=== PATIENT | male | born 1980 | race Caucasian/White ===

== ENCOUNTER 2023-11-08 09:04 | Outpatient (AMB) | payer BC, SELFPAY ==
[2023-11-08 09:08] VITALS: BP 124/70; PULSE 106; RESP 13; TEMP 36.5; O2SAT 98; BMI 24.1
--- NOTE | 2023-11-08 09:08 | A.OFFPC_ITS ---
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 Accompanied by: Self / Same As Patient Allergies No Known Allergies Allergy (Verified 11/08/23 09:33) Medication List - Last Reconciled 11/08/23 by Mercy Morris CNP No Known Home Meds Tobacco use date assessed: 11/08/23 Dental Screening Dental Screen Date: 11/08/23 Did you have a dental visit in the last 12 months?: No Did you have a dental problem in the last 6 months where you did not have access to dental care?: No Was dental information given to patient?: Yes HPI HPI Comments History of Present Illness Details New patient Prior PCP:?[facility] Last office visit/CPE: About 2 years Acute issue(s): Inguinal hernia bilaterally -Presents for about 2 years. Reports int ermittent pain PMHx: None SurgHx: None FHx: Dad: Colon cancer SocHx: Nonsmoker. Drinks alcohol occasionally. No recreation drugs He requests a colonoscopy and vasectomy. 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 1. Little interest or pleasure in doing things: not at all 2. Feeling down, depressed, or hopeless: not at all 3. Trouble falling or staying asleep, or sleeping too much: not at all 4. Feeling tired or having little energy: several days 5. Poor appetite or overeating: not at all 6. Feeling bad about yourself - or that you are a failure or have let yourself or your family down: not at all 7. Trouble concentrating on things, such as reading the newspaper or watching television: not at all 8. Moving or speaking so slowly that other people could have noticed. Or the opposite - being so fidgety or restless that you have been moving around a lot more than usual: not at all 9. Thoughts that you would be better off or of hurting yourself in some way: not at all Total score: 1 Depression Screening Interpretation: Negative Depression Screening Done: Yes 77634 - PHQ-9 Billing: Yes Source: Developed by Drs. Marvel Drake, Lauren Hudson, Link Collins and colleagues, with an educational minerva from [employer]. Thrive Questionnaire Date Thrive assessed: 11/08/23 I am a: Patient What is your living situation today?: I have a steady place to live Within the past 12 months, did the food you bought not last and you didn't have the money to get more?: Never true Within the past 12 months, did you worry whether your food would run out before you got money to buy more?: Never true Do you have trouble paying for medicines?: No Do you have trouble getting transportation to medical appointments?: No Do you have trouble paying your heating and electricity bill?: No Do you have trouble taking care of your child, family member or friend?: No Do you have trouble with day-to-day activities such as bathing, preparing meals, shopping, managing finances, etc.?: No Are you currently unemployed and looking for a job?: No Are you interested in more education?: No Please select the resources that you would like help with: None Currently or been in a relationship where the following occur: no concerns reported THRIVE Score: 0 AUDIT C Alcohol Use Questionnaire (AUDIT-C) 1. How often do you have a drink containing alcohol?: 2-4 times a month 2. How many drinks containing alcohol do you have on a typical day when you are drinking?: 1 or 2 3. How often do you have six or more drinks on one occasion?: Never Total Score: 2 DOMENIC-7 AMB Questionnaire DOMENIC-7 Date DOMENIC - 7 assessed: 11/08/23 Feeling nervous, anxious, or on edge: 0 = Not at all Not being able to stop or control worryin = Not at all Worrying too much about different things: 0 = Not at all Trouble relaxin = Not at all Being so restless that it is hard to sit still: 0 = Not at all Becoming easily annoyed or irritable: 0 = Not at all Feeling afraid as if something awful might happen: 0 = Not at all Total DOMENIC-7 score (0-4 normal; 5-9 mild; 10-14 moderate; 15-21 severe): 0 Source: Developed by Drs. Marvel Drake, Lauren Hudson, Link Collins and colleagues, with an educational minerva from [employer]. DOMENIC-7 Assessment Billing DOMENIC-7 Assessment Tool: DOMENIC-7 Assessment 75902 Review of Systems Const Details: Denies chills, Denies fatigue, Denies fever(s), Denies headache(s) and Denies weakness HEENT Denies change in vision, Denies dizziness, Denies headache(s), Denies hearing loss, Denies nasal congestion, Denies sinus pain, Denies sinus pressure and Denies sore throat Card Denies chest pain, Denies lightheadedness, Denies dyspnea and Denies other (palpitations) Resp Denies cough, Denies dyspnea and Denies wheezing GI Denies abdominal pain, Denies melena, Denies hematochezia, Denies change in bowel habits, Denies dyspepsia and Denies nausea Denies hematuria and Denies dysuria Musc Denies abnormal gait, Denies myalgias, Denies arthralgias, Denies numbness and Denies tingling Skin/Breast Denies rash, Denies unusual bruising and Denies wounds Neuro Denies abnormal gait, Denies dizziness, Denies headache(s), Denies memory loss, Denies numbness, Denies Sensory deficit (Neuro), Denies tingling and Denies weakness Psych Denies anxiety, Denies depression and Denies memory loss Endo Denies cold intolerance, Denies fatigue, Denies heat intolerance, Denies polydipsia and Denies polyuria Jose/Lymph Denies easy bleeding and Denies easy bruising Aller/Immun Denies wheezing Physical exam (Primary Care) Vital Signs: Last Vital Signs Temp 97.7 F 11/08/23 09:08 Pulse 106 H 11/08/23 09:08 Resp 13 11/08/23 09:08 BP 124/70 11/08/23 09:08 Pulse Ox 98 11/08/23 09:08 Oxygen Delivery Method Room Air 11/08/23 09:08 BMI result Body Mass Index 24.1 Tobacco/Smoking Status: Tobacco use Status Tobacco use date assessed 11/08/23 11/08/23 09:19 Patient Tobacco Use Status Never used Tobacco 11/08/23 09:19 e-Cigarette/Vaping Use Never Used 11/08/23 09:19 PHQ-9: PHQ-9 Score PHQ-9: Total score 1 11/08/23 09:19 Depression Screening Interpretation: Negative Thrive Assessment: Date of Thrive Assessment Date Thrive assessed 11/08/23 11/08/23 09:19 Currently or been in a relationship where the following occur: no concerns reported Const Other: General: no acute distress, well developed, alert and awake Nutritional Appearance: well nourished Orientation/consciousness: patient oriented x3 HENMT Head: Yes normocephalic and Yes atraumatic Ears: hearing grossly normal bilaterally and TM's normal bilaterally General nose exam: Normal external nose present and Normal nares present Mouth: Normal oral and palatal mucosa present and moist mucous membranes Teeth and gingiva: dentition normal Throat: Yes oropharynx normal Eyes Pupils: Equal, round and reactive pupils present and Pupil accommodation reflex normal EOM: EOMs intact bilaterally Neck Neck: Yes normal visual inspection, Yes no lymphadenopathy and Yes trachea midline Thyroid: Thyroid normal Carotids: no bruits Lymphatic: no lymphadenopathy noted Chest Chest palpation & inspection: normal inspection of the chest Resp Effort & Inspection: normal respiratory effort Auscultation: clear to auscultation bilaterally Cardio Rate: regular rate Rhythm: regular rhythm Heart sounds: S1 normal heart sound present, S2 normal heart sound present, no gallops, no murmurs and no rubs Bruits: no abdominal aortic bruits and no carotid bruits GI Palpation (GI): No Abdominal aortic bruit present, Soft to palpation, nontender, No hepatosplenomegaly present and No Rebound tenderness present Auscultation: normal bowel sounds General: Yes no CVA tenderness Large, painless bulge palpated to the right groin and suprapubic region Back/Spine/Pelvis Back: no CVA tenderness Cervical Spine: cervical ROM normal and No Cervical spine tenderness Thoracic/Lumbar Spine: thoraco-lumbar ROM normal, No pain with thoraco-lumbar ROM, No thoracic spinal tenderness and No lumbar spinal tenderness Skin General: warm and dry. Normal skin color. Normal skin turgor Lesions: no lesions Rashes: no rashes Trauma: no lacerations or abrasions Wounds: no wounds Nails: normal Neuro General: patient oriented x3, gait normal and CN's II-XI intact bilaterally Cranial nerves: Yes Equal, round and reactive pupils present Cognition (Neuro): normal cognition Gait exam (Neuro): Normal gait present Motor exam (neuro): 5/5 motor strength present throughout Sensory Exam: No Sensory deficit (Neuro) Deep tendon reflexes (DTR's): Right patellar reflex intensity grade: 2+ and Left patellar reflex intensity grade: 2+ Extrem General: Yes normal to inspection, No edema and No calf tenderness Psych Appearance: grossly normal Affect: normal affect Attitude: cooperative Thought process: Normal thought process present Assessment and Plan Assessment & Plan (1) Normal physical examination, routine: Code(s): Z00.00 - Encounter for general adult medical examination without abnormal findings Plan: No significant physical restrictions or limitations noted Annual dental checkup recommended Follow-up in 2-3 weeks for telehealth visit for labs review Return sooner with symptoms or concerns Verbalized understanding and agreed with treatment plan (2) Right inguinal hernia: Code(s): K40.90 - Unilateral inguinal hernia, without obstruction or gangrene, not specified as recurrent Plan: Reports bilateral inguinal hernia with intermittent pain for the past 2 years Large, painless bulge palpated to the right groin and suprapubic region May take Tylenol ibuprofen for pain or discomfort Warm/cool compresses encouraged Ultrasound of both groin ordered. May referred to general surgery based on ultrasound results Follow-up with worsening or new signs and symptoms Verbalized understanding and agreed with treatment plan (3) Vasectomy evaluation: Code(s): Z30.09 - Encounter for other general counseling and advice on contraception Plan: Request vasectomy Referred to Urology (4) Colon cancer screening: Code(s): Z12.11 - Encounter for screening for malignant neoplasm of colon Plan: He has never had a colonoscopy His father has history of colon cancer Referred to gastroenterology for colonoscopy (5) Vaccine counseling: Code(s): Z71.85 - Encounter for immunization safety counseling Plan: He has never had the flu vaccine and does not want the vaccine at this time Instructed on importance of vaccination and encouraged to get vaccinated for the flu (6) Laboratory tests ordered as part of a complete physical exam (CPE): Code(s): Z00.00 - Encounter for general adult medical examination without abnormal findings Plan: Fasting labs ordered in preparation of a complete physical exam. Advised to fast for at least 10 hours before getting labs drawn. May drink water Verbalized understanding and agreed with treatment plan. Orders: Orders Complete Blood Count Auto Diff Today Z00.00 - Encounter for general adult medical examination without abnormal findings Lipid Panel Today Z00.00 - Encounter for general adult medical examination without abnormal findings PSA, Ultra Sensitive Today Z00.00 - Encounter for general adult medical examination without abnormal findings Comprehensive [place]. Panel Fast Today Z00.00 - Encounter for general adult m edical examination without abnormal findings TSH reflex Free T4 Today Z00.00 - Encounter for general adult medical examination without abnormal findings UA CC w/rflx Micro + Cult Today Z00.00 - Encounter for general adult medical examination without abnormal findings US soft tiss head and/or neck Today K40.90 - Unilateral inguinal hernia, without obstruction or gangrene, not specified as recurrent Referrals Urology Referral Z30.09 - Encounter for other general counseling and advice on contraception Gastroenterology Referral Z12.11 - Encounter for screening for malignant neoplasm of colon Coding Level of Care Code New Pt Prev Care 40-64y(46018) Diagnoses Normal physical examination, routine Z00.00 Right inguinal hernia K40.90 Vasectomy evaluation Z30.09 Colon cancer screening Z12.11 Vaccine counseling Z71.85 Laboratory tests ordered as part of a complete physical exam (CPE) Z00.00 Additional Codes DOMENIC-7 Assessment Billing - DOMENIC-7 Assessment Tool: DOMENIC-7 Assessment 78777 ([id number])
== END 2023-11-08 09:52 | disposition home or self-care (01) ==
PROVIDERS: PCP Nurse Practitioner Family; Visit Provider Nurse Practitioner Family
DX: Z00.00 Encounter for general adult medical examination without abnormal findings (principal); K40.90 Unilateral inguinal hernia, without obstruction or gangrene, not specified as recurrent; Z12.11 Encounter for screening for malignant neoplasm of colon; Z71.85 Encounter for immunization safety counseling
CPT/HCPCS: 99386

== ENCOUNTER 2023-11-30 11:07 | Outpatient (REF) | payer BC, SELFPAY ==
--- NOTE | ~2023-11-30 | US_ITS ---
EXAMINATION: Ultrasound pelvis Limited CLINICAL INFORMATION: Large painless bulge palpated in the right groin and suprapubic region. COMPARISON: None available. TECHNIQUE: Grayscale and color Doppler imaging was obtained in the right and left inguinal regions. FINDINGS: -Corresponding with palpable abnormality in the right inguinal region is a suspected hernia with a fascial defect measuring approximately 2.1 cm. There is suspected herniation of fat. There is unclear herniation of bowel. Hernia is more prominent with Valsalva maneuvering. -Corresponding with palpable abnormality left inguinal region is a suspected hernia with a fascial defect measuring approximately 2.7 cm. There is suspected herniation of fat. There is unclear or herniation of bowel. Hernia is more prominent with Valsalva maneuvering. US/US pelvic limited IMPRESSION: Bilateral inguinal hernias. There is definitively herniation of fat, however, there is unclear herniation of bowel within either hernia. Recommend CT imaging of the pelvis for further evaluation.
== END 2023-11-30 11:08 | disposition home or self-care (01) ==
LOC: HO.US 11:07
PROVIDERS: PCP Nurse Practitioner Family; Visit Provider Nurse Practitioner Family
DX: K40.90 Unilateral inguinal hernia, without obstruction or gangrene, not specified as recurrent (principal)
CPT/HCPCS: 76857

== ENCOUNTER 2024-04-04 08:08 | Outpatient (AMB) | payer BC, SELFPAY ==
--- NOTE | 2024-04-04 08:19 | MHC.OFFVIS ---
Vital Signs 04/04/24 08:21 Height 5 ft 10 in Weight 173 lb 4.533 oz BMI 24.9 BP 128/80 Blood Pressure Location Rt brachial Position Sitting Pulse 126 H Pulse Source Pulse Oximeter Pulse Oximetry (%) 98 Oxygen Delivery Method Room Air Intake Visit Reasons: Colonoscopy Screening Intake Note: Anderson presents in office today for a scheduled colo s/p consult CC; Pt reports no previous hx of colo s/p. Family hx (father) of colo cancer noted. Pt denies any sx or additional concerns at this point and confirms the routine nature of this s/p. Curriculum Advisory Teacher Required: No Allergies No Known Allergies Allergy (Verified 04/04/24 08:21) HPI HPI Colonoscopy Screening: Details: 43 year old? male here today for pre colonoscopy screening.? Patient was sent to us by his PCP.? This is his first colonoscopy screening.? Patient denies any gastrointestinal symptoms in the past or at present.? Patient's father was diagnosed with colorectal cancer in early 60s. Recommendation was made for patient to go for early colorectal screening. Patient denies any melena, hematochezia, unintentional weight loss or ribbon like stools..? Denies history of difficulty with sedation or anesthesia in the past.? Negative for history of sleep apnea.? Denies any history of cardiac, renal, pulmonary, or hepatic disease.?? No history of infectious? diseases like hepatitis A, B, C, HIV or tuberculosis.? 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 [employer] Cognitive needs: No Hearing needs: No Vision needs: No Review of Systems Const Denies weight gain and Denies weight loss ENT Reports no additional complaints, Denies dysphagia and Denies odynophagia Card Reports no additional complaints Resp Reports no additional complaints GI Denies abdominal pain, Denies belching, Denies melena, Denies bloating, Denies change in bowel habits, Denies dysphagia, Denies excessive flatus, Denies dyspepsia, Denies heartburn, Denies diarrhea, Denies loose stools, Denies nausea, Denies odynophagia and Denies vomiting Reports no additional complaints Musc Reports no additional complaints Neuro Reports no additional complaints Psych Reports no additional complaints Endo Reports no additional complaints Physical Exam Vital Signs: Last Vital Signs Pulse 126 H 04/04/24 08:21 BP 128/80 04/04/24 08:21 Pulse Ox 98 04/04/24 08:21 Oxygen Delivery Method Room Air 04/04/24 08:21 BMI result Body Mass Index 24.9 Const General: healthy appearing, no acute distress and well developed Nutritional Appearance: well nourished Orientation/consciousness: patient oriented x3 Resp Effort & Inspection: normal respiratory effort, able to speak in complete sentences, no tracheal deviation and symmetric chest movement Auscultation: clear to auscultation bilaterally Cardio Rate: regular rate GI Inspection: Yes normal to inspection and No distended Palpation (GI): Soft to palpation, not firm, nontender and No hepatosplenomegaly present Auscultation: normal bowel sounds General: Yes no CVA tenderness Back/Spine/Pelvis Back: no CVA tenderness Skin General skin exam: elasticity normal, turgor normal and dry skin Neuro General: patient oriented x3 Psych Appearance: grossly normal Mental Status: mental status grossly normal Assessment & Plan Assessment & Plan (1) Colon cancer screening: Code(s): Z12.11 - Encounter for screening for malignant neoplasm of colon Category: Medical Plan Patient denies any GI, cardiac or respiratory symptoms.? Denies any issues with anesthesia in the past.? Denies any history of sleep apnea.? No history infectious diseases in the past or present.? Not on any anticoagulation therapy.? Family history of CRC? Patient denies melena, hematochezia, unintentional weight loss or ribbon like stools.? Discussed at length the pre-procedure,? prep, diet & medications as well as what to expect prior, during and after the procedure.?? Stressed the importance of good bowel prep.? Recommended the use of Vaseline or Calmoseptine OTC & baby wipes with bowel movements to promote comfort.? ?Patient verbalizes understanding and agrees to plan of care.? He was given the opportunity to ask questions and all questions answered.? We will see him after the procedure.? Medications: New bisacodyl (Dulcolax (bisacodyl)) take 4 tabs at noon the day before your colonoscopy 20 mg (4 x 5 mg) PO ONCE 1 day 4 tabs 0RF Z12.11 - Encounter for screening for malignant neoplasm of colon polyethylene glycol 3350 (Miralax) As directed by gastroenterology department at [facility] 238 grams PO ONCE 238 grams 0RF Z12.11 - Encounter for screening for malignant neoplasm of colon Coding Level of Care Code New Pt Level 3 (91808) Diagnoses Colon cancer screening Z12.11 Time Spent (min) 40 Comment 30 minutes spent with patient and additional 10 minutes spent reviewing his records
[2024-04-04 08:21] VITALS: BP 128/80; PULSE 126; O2SAT 98; BMI 24.9
== END 2024-04-04 09:01 | disposition home or self-care (01) ==
PROVIDERS: PCP Nurse Practitioner Family; Visit Provider Nurse Practitioner Family
DX: Z01.818 Encounter for other preprocedural examination (principal); Z12.11 Encounter for screening for malignant neoplasm of colon; Z80.0 Family history of malignant neoplasm of digestive organs
CPT/HCPCS: S0285

== ENCOUNTER → 2024-04-04 08:08 | Outpatient (BNVA) | payer BC, SELFPAY | PROVIDERS: PCP Nurse Practitioner Family; Visit Provider Nurse Practitioner Family ==

== ENCOUNTER 2024-04-10 15:25 | Outpatient (AMB) | payer BC, SELFPAY ==
--- NOTE | 2024-04-10 15:29 | MHC.OFFVIS ---
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 Morris. He presents to the office today for - vasectomy evaluation Vasectomy evaluation The patient presents for vasectomy consultation.? He is currently . He has fathered 4 children with 2 partners. The youngest child is 4 years old. His partner is aware and permissive for a vasectomy. Current form of control is hormones. 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 Patient education has been provided via AUA video, via printed information, risks of failure, recovery time, bruising and potential pain syndrome have been stressed Discussion today focused on the presence of vasectomy and the risks, benefits and alternatives that are available. Vasectomy as intended as a permanent form of control. Printed information and literature was provided to the patient. Overall there is a one in 2500 failure rate. This can occur at any time after vasectomy. Risks were discussed highlighting hematoma, spermatocele, epididymal congestion, development of sperm antibodies, and development of chronic pain estimated between 1-5%. The procedure was reviewed in detail. Anatomical diagrams of the male genitalia were used to explain the location of the vas deferens. The vas deferens will be transected, the proximal end will be cauterized, a metal clip would be applied to separate the 2 vas deferens ends. It was explained the procedure will be done in the office and takes approximately 10-15 minutes. Less common problems that arise with vasectomy include hematoma, bleeding, allergic reaction to anesthetic, epididymal infection, epididymal congestion, scrotal discomfort, spermatic leak, spermatic granuloma and the possibility of antisperm antibodies. He understands these risks and wishes to proceed. Consent was signed at the office today. He also understands that it takes 12 weeks for sperm to fully clear the system. He will need to provide a semen sample at 12 weeks and if this is not clear a 2nd sample at 16 weeks. Medical clearance to stop using protection will only be provided if he satisfies published criteria for sperm clearance. 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 [employer] Cognitive needs: No Hearing needs: No Vision needs: No Review of Systems Const All systems reviewed & are unremarkable except as noted in HPI and below Physical Exam Const General: cooperative, healthy appearing, comfortable, no acute distress, well developed, alert and awake Nutritional Appearance: average body habitus Orientation/consciousness: patient oriented x3 Limitations: no limitations HEENT Head: Yes normal to inspection, Yes normocephalic and Yes atraumatic Ears: hearing grossly normal bilaterally Eyes General: appearance normal, both eyes and all related structures Neck Neck: Yes normal visual inspection and Yes trachea midline Chest Chest palpation & inspection: normal inspection of the chest Resp Effort & Inspection: normal respiratory effort and able to speak in complete sentences Cardio Rate: regular rate GI Inspection: Yes normal to inspection General: Yes no CVA tenderness Back/Spine/Pelvis Back: no CVA tenderness Skin General skin exam: no rashes or lesions noted Neuro General: patient oriented x3 Extrem General: Yes normal to inspection Psych Appearance: grossly normal and well kempt Mental Status: mental status grossly normal Speech and movement: Normal speech and movement present and Clear speech present Affect: normal affect Attitude: cooperative Thought process: Normal thought process present Thought content: Normal thought content present Insight: Fair insight present (Psych) Judgement: Fair judgement present (Psych) Assessment & Plan Assessment & Plan (1) Vasectomy evaluation: Code(s): Z30.09 - Encounter for other general counseling and advice on contraception Category: Medical (2) Anxiety about health: Code(s): R45.89 - Other symptoms and signs involving emotional state Category: Medical Plan Discussed at length vasectomy; risks and benefits; as noted above All questions were answered. Discussed semen analysis in office visit verses fellows; information provided. Prescriptions provided; discussed specific instructions of bringing them to office prior to procedure. Will schedule for in office vasectomy as discussed. Follow-up per doctor's orders; or sooner with any issues, concerns, and or questions. Medications: New diazepam Take medication after arrival at office 2 mg PO BID 1 day PRN 2 tabs 0RF anxiety R45.89 - Other symptoms and signs involving emotional state tramadol Bring to office day of procedure; take medication after arrival at office 50 mg PO Q8H 3 days PRN 9 tabs 0RF pain Patient Instructions: The patient had an opportunity to ask questions regarding the treatment plan. All questions were answered. Physical exam, labs, and imaging were discussed and reviewed in detail. As well as risks, benefits, and discussion of treatment choices. No major barriers to understanding were identified. The patient expressed understanding and agreement with the above treatment plan. The patient was made aware they should contact our office by phone for worsening of their current condition, the appearance of new symptoms, or with any questions or concerns. Compliance is encouraged with any medications and follow up testing that is ordered. It is a privilege to be allowed the opportunity to participate in? your urological care.? Again, if you have any questions or concerns If you have any questions or concerns please do not hesitate to contact me. The office is [phone]. This note is constructed using voice recognition software. While every effort has been made to ensure accuracy plant operator control room operator errors may have been included. Yours sincerely, CHELE Khan Coding Level of Care Code New Pt Level 4 (13988) Diagnoses Vasectomy evaluation Z30.09 Anxiety about health R45.89
== END 2024-04-10 15:56 | disposition home or self-care (01) ==
PROVIDERS: PCP Nurse Practitioner Family; Visit Provider Nurse Practitioner Family
DX: Z30.09 Encounter for other general counseling and advice on contraception (principal); R45.89 Other symptoms and signs involving emotional state
CPT/HCPCS: 99204

== ENCOUNTER → 2024-04-10 15:25 | Outpatient (BNVA) | payer BC, SELFPAY | PROVIDERS: PCP Nurse Practitioner Family; Visit Provider Nurse Practitioner Family ==

== ENCOUNTER 2024-08-15 09:34 | Day surgery (SDC) | payer BC, SELFPAY ==
--- NOTE | 2024-08-14 13:29 | HO.ANESPROP2 ---
Documented by User: Stacey Becerra NP 08/14/24 13:29 HPI - Anesthesia Eval Consult details Narrative: 43yo M for Colonoscopy PMFSH Active Problems Active Problems: All Active Problems Anxiety about health (Acute) Vaccine counseling (Acute) Colon cancer screening (Acute) Vasectomy evaluation (Acute) Right inguinal hernia (Acute) Normal physical examination, routine (Acute) Laboratory tests ordered as part of a complete physical exam (CPE) (Acute) Past Medical History Medical History No pertinent past medical history Family History Family History Father Colon cancer Surgical History Surgical History No pertinent past surgical history Social History Social History Housing: House Are you a primary medical care manager to a significant other at home: No Do you presently have visiting nurse or other home services: No Patient Tobacco Use Status: Never used Tobacco e-Cigarette/Vaping Use: Never Used Use of substances other than those prescribed or required for medical reasons: No Have you been hit, kicked, punched, or otherwise hurt by someone within the past year? 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 [employer] Cognitive needs: No Hearing needs: No Vision needs: No Meds Allergies Allergy/AdvReac Type Severity Reaction Status Date / Time No Known Allergies Allergy Verified 04/10/24 21:18 Assessment and Plan Assessment Anesthesia Assessment: Chart Reviewed Documented by User: Celi Ordoñez MD 08/15/24 10:31 PMFSH Past Medical History Medical History No pertinent past medical history Family History Family History Father Colon cancer Family history of problems with anesthesia: No Surgical History Surgical History No pertinent past surgical history History of Problems with Anesthesia: No Social History Social History Housing: House Are you a primary medical care manager to a significant other at home: No Do you presently have visiting nurse or other home services: No Patient Tobacco Use Status: Never used Tobacco e-Cigarette/Vaping Use: Never Used Use of substances other than those prescribed or required for medical reasons: No Have you been hit, kicked, punched, or otherwise hurt by someone within the past year? 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 [employer] Cognitive needs: No Hearing needs: No Vision needs: No Meds Allergies Allergy/AdvReac Type Severity Reaction Status Date / Time No Known Allergies Allergy Verified 04/10/24 21:18 Exam Airway Mallampati Class: II TM Dist: >3cm Neck ROM: Full Heart: rrr Lungs: cta Assessment and Plan Assessment Anesthesia Assessment: Anesthesia Plan Discussed Final Anesthetic Review Family History of Problems with Anesthesia: No History of Problems with Anesthesia: No NPO: Yes ASA Class: II Final Preanesthetic Review: No Changes in Pt Med Stat, Meds/Allgs Chart Reviewed, Consent Obtained/Reviewed and Anes Risks/Benef Reviewed Patient Risk: Low Procedure Risk: Low Anesthetic Plan Anesthetic Plan: MAC: Disposition: Standard PACU
--- NOTE | 2024-08-15 10:09 | MHC.SHP ---
Pre-Procedural Eval Section A - 24 Hr Update-Section A only Date of Service: 08/15/24 Section B - Complete if H&P > 30 days Chief Complaint: Family history of malignant neoplasm of digestive Relevant Family History (Specify if Yes): Yes Relevant Social History: None Present Medications: see Short Stay Collaborative assessment Medical History: No relevant PMH History of Previous Operations: No relevant previous surgery Allergies: Allergies Allergy/AdvReac Type Severity Reaction Status Date / Time No Known Allergies Allergy Verified 04/10/24 21:18 Review of Systems Sugical H&P ROS: Negative: Constitution, Cardiovascular, Respiratory, Neurological, Psychiatric, Hem-Onc, Allergic/Immunologic, Gastrointestinal, Genitourinary, Musculoskeletal, Integumentary, Endocrine and Eyes/Ears/Nose/Throat Exam Surgical H&P Exam: Normal: HEENT, Normal: Heart, Normal: Lungs, Normal: Extremities, Normal: Abdomen, Normal: Skin and Normal: Neurological Plan Diagnosis/Plan: Unchanged I have reviewed the history and physical and performed a pertinent physical examination on my patient. No changes have occurred unless specified. Time Spent With Patient Time: Total time managing care of this patient today ____ minutes.
[2024-08-15 10:23] VITALS: BMI 24.5
[2024-08-15 10:38] VITALS: BP 143/90; PULSE 110; RESP 18; TEMP 36.4; O2SAT 97
[2024-08-15] MEDS: Lactated Ringers 1,000 ML 100 ML IVCONT (10:43)
--- NOTE | 2024-08-15 11:20 | P.OPN-COLO_ITS ---
Colonoscopy Operative Note Operative Note Date of Service: 08/15/24 Narrative: Operative Information Procedure Description: Colonoscopy Indication: screening, pos FH of CRC Anesthesia: MAC COLONOSCOPY Instrument: Olympus variable stiffness pediatric scope 190L Colonoscopy Monitoring: Vital signs and clinical assessment, continuous EKG monitoring, Pulse oximetry, Carbon Dioxide monitoring and blood pressure monitoring were done throughout the procedure. Colon withdrawal time was 14 minutes. Procedure: The patient was placed in the left lateral decubitis position and pre-procedure medications were administered. After a digital rectal examination of the ano-rectum, the video colonoscope was inserted into the rectum and advanced through the colon to the cecum/TI. The colonoscope was slowly withdrawn in a retrograde panoramic fashion and the colon mucosa was carefully examined including a retroflexed view of the rectum. Findings and interventions are described below. Procedure Difficulty: easy Findings: Terminal Ileum-normal Cecum:normal Ascending Colon: flat polyp 11-12 mm lifted with eleview and removed with hot snare with 2 clips applied to defect, x 1 3-4 sessile polyp removed with cold forceps Transverse Colon -normal Descending Colon:normal Sigmoid Colon: normal Rectum: Retroflexion with small internal hemorrhoids seen, grade I, 4-5 mm sessile polyp removed with cold forceps Anorectum - normal Intervention: cold forceps, hot snare and eleview for EMR, clips Colon preparation: [place] Bowel Preparation Scale Right colon; 1-2 Transverse colon: 2 Left colon; 1-2 (0 = Unprepared colon segment with mucosa not seen due to solid stool that cannot be cleared. 1 = Portion of mucosa of the colon segment seen, but other areas of the colon segment not well seen due to staining, residual stool and/or opaque liquid. 2 = Minor amount of residual staining, small fragments of stool and/or opaque liquid, but mucosa of colon segment seen well. 3 = Entire mucosa of colon segment seen well with no residual staining, small fragments of stool or opaque liquid) Impression and Post Procedure Diagnosis: colon polyps internal hemorrhoids Plan: High fiber diet leaflet Avoid straining at stool, epsom salts and sitz bath, anusol supps or cream Repeat Colonoscopy in 1 year due to polyps and prep or earlier if clinically indicated Above findings were reviewed with the patient and relevant handouts were provided if indicated.
[2024-08-15 11:26] VITALS: BP 107/76; PULSE 102; RESP 16; TEMP 36.4; O2SAT 98
[2024-08-15 11:41] VITALS: BP 112/82; PULSE 103; RESP 16; O2SAT 96
[2024-08-15 11:56] VITALS: BP 102/62; PULSE 88; RESP 16; TEMP 37; O2SAT 96
== END 2024-08-15 12:30 | disposition home or self-care (01) ==
PROVIDERS: Visit Provider Internal Medicine Gastroenterology
PROC: 0DJD8ZZ Inspection of Lower Intestinal Tract, Via Natural or Artificial Opening Endoscopic (ICD-10-PCS; CPT 45378; principal; 2024-08-15 11:10)
DX: Z12.11 Encounter for screening for malignant neoplasm of colon (principal); D12.2 Benign neoplasm of ascending colon; K62.1 Rectal polyp; K64.0 First degree hemorrhoids; Z80.0 Family history of malignant neoplasm of digestive organs
CPT/HCPCS: 45385; 45381; 45380; 88305; J2003; J2250; J2704

== ENCOUNTER → 2024-08-15 09:34 | Outpatient (BNV) | payer BC, SELFPAY | PROVIDERS: Visit Provider Internal Medicine Gastroenterology | DX: Z12.11 Encounter for screening for malignant neoplasm of colon (principal); Z80.0 Family history of malignant neoplasm of digestive organs; K63.5 Polyp of colon; K62.1 Rectal polyp; K64.0 First degree hemorrhoids | CPT/HCPCS: 45380; 45381; 45385 ==

== ENCOUNTER 2025-06-03 12:17 | Outpatient (AMB) | payer BC, SELFPAY ==
--- NOTE | 2025-06-03 12:21 | MHC.PC.OV ---
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 He has history of bilateral inguinal hernia. No acute symptoms at this time. He had pelvic ultrasound done in 2023 but did not follow up. He had pelvic ultrasound in 12/02/2023 with the following findings: IMPRESSION: Bilateral inguinal hernias. There is definitively herniation of fat, however, there is unclear herniation of bowel within either hernia. Recommend CT imaging of the pelvis for further evaluation. He was last seen in the office in October 2023. He was advised to perform comprehensive lab work and follow-up for telehealth visit for labs review. He never completed lab work. He admits to consuming significant amount of caffeine daily. His diet is poor with significant amount of processed foods and sodium. 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 1. Little interest or pleasure in doing things: not at all 2. Feeling down, depressed, or hopeless: not at all 3. Trouble falling or staying asleep, or sleeping too much: not at all 4. Feeling tired or having little energy: not at all 5. Poor appetite or overeating: not at all 6. Feeling bad about yourself - or that you are a failure or have let yourself or your family down: not at all 7. Trouble concentrating on things, such as reading the newspaper or watching television: not at all 8. Moving or speaking so slowly that other people could have noticed. Or the opposite - being so fidgety or restless that you have been moving around a lot more than usual: not at all 9. Thoughts that you would be better off or of hurting yourself in some way: not at all Total score: 0 Depression Screening Interpretation: Negative Depression Screening Done: Yes Source: Developed by Drs. Marvel Drake, Lauren Hudson, Link Collins and colleagues, with an educational minerva from [employer]. Thrive Questionnaire Date Thrive assessed: 11/08/23 I am a: Patient What is your living situation today?: I have a steady place to live Within the past 12 months, did the food you bought not last and you didn't have the money to get more?: Never true Within the past 12 months, did you worry whether your food would run out before you got money to buy more?: Never true Do you have trouble paying for medicines?: No Do you have trouble getting transportation to medical appointments?: No Do you have trouble paying your heating and electricity bill?: No Do you have trouble taking care of your child, family member or friend?: No Do you have trouble with day-to-day activities such as bathing, preparing meals, shopping, managing finances, etc.?: No Are you currently unemployed and looking for a job?: No Are you interested in more education?: No Please select the resources that you would like help with: None Currently or been in a relationship where the following occur: No concerns reported THRIVE Score: 0 AUDIT C Alcohol Use Questionnaire (AUDIT-C) 1. How often do you have a drink containing alcohol?: Monthly or less 2. How many drinks containing alcohol do you have on a typical day when you are drinking?: 3 or 4 3. How often do you have six or more drinks on one occasion?: Never Total Score: 2 DOMENIC-7 AMB Questionnaire DOMENIC-7 Date DOMENIC - 7 assessed: 11/08/23 Feeling nervous, anxious, or on edge: 0 = Not at all Not being able to stop or control worryin = Not at all Worrying too much about different things: 0 = Not at all Trouble relaxin = Not at all Being so restless that it is hard to sit still: 0 = Not at all Becoming easily annoyed or irritable: 0 = Not at all Feeling afraid as if something awful might happen: 0 = Not at all Total DOMENIC-7 score (0-4 normal; 5-9 mild; 10-14 moderate; 15-21 severe): 0 Source: Developed by Drs. Marvel Drake, Lauren Hudson, Link Collins and colleagues, with an educational minerva from [employer]. Review of Systems Const Details: Const Denies chills, Denies fatigue, Denies fever(s), Denies headache(s) and Denies weakness ENT Denies dizziness and Denies headache(s) Card Denies chest pain, Denies lightheadedness, Denies dyspnea and Denies other (Palpitations) Resp Denies cough, Denies dyspnea, Denies wheezing and Denies other ( shortness of breath) GI Denies abdominal pain, Denies melena, Denies hematochezia, Denies change in bowel habits, Denies dyspepsia and Denies nausea Reports as per HPI Musc Denies abnormal gait, Denies myalgias, Denies arthralgias, Denies numbness and Denies tingling Skin/Breast Denies rash, Denies unusual bruising and Denies wounds Neuro Denies abnormal gait, Denies dizziness, Denies headache(s), Denies memory loss, Denies numbness, Denies Sensory deficit (Neuro), Denies tingling and Denies weakness Psych Denies anxiety, Denies depression, Denies memory loss Endo Denies cold intolerance, Denies fatigue, Denies heat intolerance, Denies polydipsia and Denies polyuria Aller/Immun Denies wheezing Physical exam (Primary Care) Vital Signs: Last Vital Signs Temp 97.9 F 06/03/25 12:26 Pulse 96 06/03/25 12:26 Resp 16 06/03/25 12:26 BP 146/92 H 06/03/25 12:26 Pulse Ox 98 06/03/25 12:26 Oxygen Delivery Method Room Air 06/03/25 12:26 BMI result Body Mass Index 25.4 Tobacco/Smoking Status: Tobacco use Status Tobacco use date assessed 06/03/25 06/03/25 12:29 Patient Tobacco Use Status Never used Tobacco 06/03/25 12:29 e-Cigarette/Vaping Use Never Used 06/03/25 12:29 PHQ-9: PHQ-9 Score PHQ-9: Total score 0 06/03/25 12:29 Depression Screening Interpretation: Negative Thrive Assessment: Date of Thrive Assessment Date Thrive assessed 11/08/23 06/03/25 12:29 Currently or been in a relationship where the following occur: No concerns reported Const Other: General: no acute distress and well developed Nutritional Appearance: well nourished Orientation/consciousness: patient oriented x3 HENMT Head: Yes normocephalic and Yes atraumatic Eyes General: appearance normal, both eyes and all related structures Pupils: Equal, round and reactive pupils present EOM: EOMs intact bilaterally Resp Effort & Inspection: normal respiratory effort Auscultation: clear to auscultation bilaterally Cardio Rate: regular rate Rhythm: regular rhythm Heart sounds: S1 normal heart sound present, S2 normal heart sound present, no gallops, no murmurs and no rubs GI Palpation (GI): No Abdominal aortic bruit present, Soft to palpation, nontender, No hepatosplenomegaly present and No Rebound tenderness present Auscultation: normal bowel sounds Large painless bulge to the right groin. No bulge to the left groin. Skin is intact Back/Spine/Pelvis Back: no CVA tenderness Cervical Spine: cervical ROM normal and No Cervical spine tenderness Thoracic/Lumbar Spine: thoraco-lumbar ROM normal, No pain with thoraco-lumbar ROM, No thoracic spinal tenderness and No lumbar spinal tenderness Extrem General: Yes normal to inspection, No edema and No calf tenderness Skin General: warm and dry. Normal skin color. Normal skin turgor Lesions: no lesions Rashes: no rashes Trauma: no lacerations or abrasions Wounds: no wounds Nails: normal Neuro General: patient oriented x3, gait normal and no focal neuro deficit Cranial nerves: Yes Equal, round and reactive pupils present Cognition (Neuro): normal cognition Gait exam (Neuro): Normal gait present Sensory Exam: No Sensory deficit (Neuro) Psych Appearance: grossly normal Affect: normal affect Attitude: cooperative Thought process: Normal thought process present Coding Level of Care Code Est Pt Level 4 (87958) Diagnoses Bilateral inguinal hernia K40.20 Elevated blood pressure reading without diagnosis of hypertension R03.0 Laboratory tests ordered as part of a complete physical exam (CPE) Z00.00 Assessment & Plan Assessment & Plan (1) Bilateral inguinal hernia: Code(s): K40.20 - Bilateral inguinal hernia, without obstruction or gangrene, not specified as recurrent Category: Medical Plan: 44-year-old male presents with complaints of chronic intermittent pain to his right groin. He has history of bilateral inguinal hernia. No acute symptoms at this time. He had pelvic ultrasound done in 2023 but did not follow up. Large painless bulge to the right groin. Davis to the left groin. Skin is intact. Pelvic ultrasound in 12/02/2023 with the following findings: IMPRESSION: Bilateral inguinal hernias. There is definitively herniation of fat, however, there is unclear herniation of bowel within either hernia. Recommend CT imaging of the pelvis for further evaluation. Pelvic CT ordered. May take Tylenol ibuprofen as needed. Warm/cool compresses encouraged. Referred to general surgery. Follow-up as needed. Verbalized understanding and agreed with the plan. (2) Elevated blood pressure reading without diagnosis of hypertension: Code(s): R03.0 - Elevated blood-pressure reading, without diagnosis of hypertension Category: Medical Plan: Resting blood pressure is 146/92, above goal of less than 140/90. He consumes significant amount of caffeine daily. His diet is poor with significant amount of processed foods and sodium. Encouraged to cut down or avoid caffeine intake. Healthy diet, including low-sodium encouraged. Routine exercise encouraged. Perform lab work before next visit. Follow-up in 1 month for an extended physical exam, hypertension, and labs reviewed. Return sooner with symptoms or concerns. Verbalized understanding and agreed with the plan. (3) Laboratory tests ordered as part of a complete physical exam (CPE): Code(s): Z00.00 - Encounter for general adult medical examination without abnormal findings Category: Medical Plan: Fasting labs ordered as part of a complete physical exam. Advised to fast for at least 10 hours before getting labs drawn. May drink water Verbalized understanding and agreed with treatment plan. Orders: Orders Complete Blood Count Auto Diff Today Z00.00 - Encounter for general adult medical examination without abnormal findings Lipid Panel Today Z00.00 - Encounter for general adult medical examination without abnormal findings PSA, Ultra Sensitive Today Z00.00 - Encounter for general adult medical examination without abnormal findings TSH reflex Free T4 Today Z00.00 - Encounter for general adult medical examination without abnormal findings Comprehensive [place]. Panel Fast Today Z00.00 - Encounter for general adult medical examination without abnormal findings Microalbumin, Random (w Creat) Today Z00.00 - Encounter for general adult medical examination without abnormal findings UA CC w/rflx Micro + Cult Today Z00.00 - Encounter for general adult medical examination without abnormal findings Vitamin D 25-OH Total Today Z00.00 - Encounter for general adult medical examination without abnormal findings CT pelvis wo IV con Today K40.20 - Bilateral inguinal hernia, without obstruction or gangrene, not specified as recurrent Referrals General Surgery Referral K40.20 - Bilateral inguinal hernia, without obstruction or gangrene, not specified as recurrent
[2025-06-03 12:26] VITALS: BP 146/92; PULSE 96; RESP 16; TEMP 36.6; O2SAT 98; BMI 25.4
== END 2025-06-03 12:50 | disposition home or self-care (01) ==
LOC: HO.HMCFM 12:18
PROVIDERS: PCP Nurse Practitioner Family; Visit Provider Nurse Practitioner Family
DX: K40.20 Bilateral inguinal hernia, without obstruction or gangrene, not specified as recurrent (principal); R03.0 Elevated blood-pressure reading, without diagnosis of hypertension; Z00.00 Encounter for general adult medical examination without abnormal findings

== ENCOUNTER 2025-07-08 09:01 | Outpatient (AMB) | payer BC, SELFPAY ==
--- NOTE | 2025-07-08 09:25 | A.OFFVIS_ITS ---
Vital Signs 07/08/25 09:30 Height 5 ft 10 in Weight 182 lb BMI 26.1 BP 141/85 H Blood Pressure Location Lt brachial Position Sitting Pulse 83 Intake Visit Reasons: bilateral inguinal hernias Intake Note: Patient is seen in office for evaluation of bilateral inguinal hernias. 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 He 1st noted the hernia approximately 2 years ago and since this time the hernias increased in size in his occasionally painful es pecially when standing. The right side has become more prominent than the left side although he denies significant pain on either side. He denies a previous history of hernia surgeries or other abdominal surgery. He denies any nausea, vomiting, fever or chills. An ultrasound of the pelvis performed on 11/30/2023 confirmed bilateral inguinal hernias. 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 He notes that when he is standing the hernia is most prominent but the hernia does reduce when laying in bed. 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 [employer] Cognitive needs: No Hearing needs: No Vision needs: No Review of Systems Const All systems reviewed & are unremarkable except as noted in HPI and below Physical Exam Const General: cooperative and no acute distress Nutritional Appearance: well nourished Orientation/consciousness: patient oriented x3 Limitations: no limitations HEENT Head: Yes normocephalic and Yes atraumatic Ears: hearing grossly normal bilaterally Resp Effort & Inspection: normal respiratory effort, no audible wheezes, no cough and no respiratory distress Cardio Jugular venous distension: no JVD GI Other: Easily identified bilateral inguinal hernias noted in the standing position right greater than left. Both hernias increase in size with Valsalva maneuvers but reduces easily with light pressure. Abdomen is otherwise soft and nondistended with normal bowel sounds. Inspection: Yes normal to inspection Skin Other: Warm, dry, no rash Neuro General: patient oriented x3 Extrem General: Yes no clubbing, cyanosis or edema Assessment & Plan Assessment & Plan (1) Bilateral inguinal hernia: Code(s): K40.20 - Bilateral inguinal hernia, without obstruction or gangrene, not specified as recurrent Category: Medical Qualifiers: Obstruction and gangrene presence: without obstruction or gangrene Recurrence: non-recurrent Qualified Code(s): K40.20 - Bilateral inguinal hernia, without obstruction or gangrene, not specified as recurrent Plan 44-year-old male patient presenting with bilateral inguinal hernias that are gradually increasing in size and causing mild discomfort. On examination he has bilateral reducible inguinal hernias. I recommended repair with mesh of the bilateral inguinal hernias and after discussion of the procedure, risks, and alternatives, he consents to repair of the bilateral inguinal hernias with mesh. He will be scheduled as a short-stay surgery at his earliest convenience. Coding Level of Care Code New Pt Level 4 (14763) Diagnoses Non-recurrent bilateral inguinal hernia without obstruction or gangrene K40.20 Obstruction and gangrene presence: without obstruction or gangrene Recurrence: non-recurrent
[2025-07-08 09:30] VITALS: BP 141/85; PULSE 83; BMI 26.1
--- OUTSIDE RECORDS SUMMARY | 2025-07-08 09:49 | XMS_ITS | Clinical Summary ---
Author Organization [facility] Address [address] [place] [address] Care Team Providers Care Casino Accountant Name Role Phone Julio Figueredo MD, Marvel Gutiérrez Primary Care Provider Allergies No known active allergies Medications dextroamphetami ne-amphetamine (ADDERALL) 5 mg tablet Take 1.5 tablets (7.5 mg total) by mouth once a day. DX F90.0 45 tablet 08/04/2022 Active Active Problems Problem Noted Date Diagnosed Date Attention deficit hyperactiv ity disorder (ADHD), combined type 07/05/2019 Overview (01/19/2022): Psychiatrist Dr. Tariq Levi diagnosed by testing Vitamin D deficiency 07/05/2019 Immunizations Immunization Administration Dates Next Due Influenza, Injectable, Quadr ivalent, Contains Preservative 08/02/2022(Deferred: Patient decision) Tetanus Toxoid, Reduced Diph theria Toxoid, and Acellular Pertussis Vaccine, Adsorbed 01/19/2022 Family History Medical History Relation Name Comments Colon cancer Father 64 Hypertension Mother 70 Relation Name Status Comments Father Mother Alive Social History Tobacco Use Types Packs/Day Years Used Date Smoking Tobacco: Never Smokeless Tobacco: Never Alcohol Use Standard Drinks/Week Comments Yes 0 (1 standard drink = 0.6 oz pur e alcohol) 1 beer a month Sex and Gender Information Value Date Recorded Sex Assigned at Male 01/18/2022 6:15 PM EDT Legal Sex Male 4:40 AM EDT Gender Identity Male 01/18/2022 6:15 PM EDT Sexual Orientation Straight 01/18/2022 6: 15 PM EDT Occupation Industry Job Start Date Job End Date [employer] 20 yrs Not on file Not on file Not on file Last Filed Vital Signs Vital Sign Reading Time Taken Comments Blood Pressure 118/72 08/02/2022 8:18 AM EST Pulse 77 01/04/2019 9:09 AM EDT Temperature - - Respiratory Rate - - Oxygen Saturation 97% 01/04/2019 9:09 AM EDT Inhaled Oxygen Concentration - - Weight 74.4 kg (164 lb) 08/02/2022 8:18 AM EST Height 176.5 cm (5' 9.5 ) 08/02/2022 8:18 AM EST Body Mass Index 23.87 08/02/2022 8:18 AM EST Plan of Treatment Health Maintenance Due Date Last Done Comments HIV Screening 1980 Hepatitis C Screening 1980 Hepatitis B Vaccines (1 of 3 - 19+ 3-dose series) 1999 Alcohol/Substance Use Screening 09/12/2024 Depression Screening and Follow-Up 09/12/2024 Social Drivers of Health Annual Screening 09/12/2024 COVID-19 Vaccine (3 - season) 2025 03/22/2021, 02/18/2021 Influenza Vaccine (#1) 2025 DTaP,Tdap,and Td Vaccines (2 - Td or Tdap) 01/20/2032 01/19/2022 RSV Vaccine (60+ years old and patients) (1 - 1-dose 75+ series) 2055 Pneumococcal Vaccine: Pediatric (0-5 Years) and At-Risk Patients (6-50 Years) Aged Out No longer eligible b ased on patient's age to complete this topic Varicella Vaccines Discontinued Insurance [facility] [employer] Advance Directives Documents on File Type Date Recorded Patient Dealership General Manager Expl anation Health Care Proxy 09/21/2011 12:00 AM 2011 HCP Checklist Care Teams Casino Accountant Relationship Specialty Start Date End Date Marvel Kim Jr., MD PCP - General Family Medicine 03/31/17
== END 2025-07-08 10:13 | disposition home or self-care (01) ==
LOC: HO.HGS 09:02
PROVIDERS: PCP Nurse Practitioner Family; Visit Provider Surgery
DX: K40.20 Bilateral inguinal hernia, without obstruction or gangrene, not specified as recurrent (principal)
CPT/HCPCS: 99204

== ENCOUNTER 2025-07-17 10:48 | Day surgery (SDC) | payer BC, SELFPAY ==
--- OUTSIDE RECORDS SUMMARY | 2025-07-10 12:06 | XMS_ITS | Clinical Summary ---
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
--- NOTE | 2025-07-15 10:48 | HO.ANESPROP2 ---
Documented by User: Edda Hill NP 07/15/25 10:48 HPI - Anesthesia Eval Consult details Narrative: 44 yr old male for bilateral Repair Hernia Inguinal Reducible with mesh PMFSH Active Problems Active Problems: All Active Problems (Updated 07/08/25 @ 09:40 by Rm Cruz MD) Elevated blood pressure reading without diagnosis of hypertension (Acute) Bilateral inguinal hernia (Acute) Anxiety about health (Acute) Vaccine counseling (Acute) Colon cancer screening (Acute) Vasectomy evaluation (Acute) Right inguinal hernia (Acute) Normal physical examination, routine (Acute) Laboratory tests ordered as part of a complete physical exam (CPE) (Acute) Past Medical History Medical History No pertinent past medical history Family History Family History Father Colon cancer Family history of problems with anesthesia: No Surgical History Surgical History No pertinent past surgical history History of Problems with Anesthesia: No Social History Social History Housing: House Are you a primary healthcare network consultant to a significant other at home: No Do you presently have visiting nurse or other home services: No Patient Tobacco Use Status: Never used Tobacco e-Cigarette/Vaping Use: Never Used Second Hand Smoke Exposure: No Use of substances other than those prescribed or required for medical reasons: No Have you been hit, kicked, punched, or otherwise hurt by someone within the past year? 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 [employer] Cognitive needs: No Hearing needs: No Vision needs: No Meds Allergies Allergy/AdvReac Type Severity Reaction Status Date / Time No Known Allergies Allergy Verified 07/08/25 09:29 Home Medications ?Medication ?Instructions ?Recorded ?Confirmed ?Last Taken ?Type No Known Home Meds 06/03/25 07/08/25 Unknown History Assessment and Plan Final Anesthetic Review Family History of Problems with Anesthesia: No History of Problems with Anesthesia: No Documented by User: Nelson Delacruz MD 07/17/25 12:03 PMFSH Past Medical History Medical History No pertinent past medical history Family History Family History Father Colon cancer Surgical History Surgical History No pertinent past surgical history Social History Social History Housing: House Are you a primary healthcare network consultant to a significant other at home: No Do you presently have visiting nurse or other home services: No Patient Tobacco Use Status: Never used Tobacco e-Cigarette/Vaping Use: Never Used Second Hand Smoke Exposure: No Use of substances other than those prescribed or required for medical reasons: No Have you been hit, kicked, punched, or otherwise hurt by someone within the past year? 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 [employer] Cognitive needs: No Hearing needs: No Vision needs: No Meds Allergies Allergy/AdvReac Type Severity Reaction Status Date / Time No Known Allergies Allergy Verified 07/08/25 09:29 Home Medications ?Medication ?Instructions ?Recorded ?Confirmed ?Last Taken ?Type No Known Home Meds 06/03/25 07/08/25 Unknown History Exam Exam Date and Time: 07/17/25 Airway Mallampati Class: III TM Dist: >3cm Neck ROM: Full Loose/Missing/Broken Teeth: Yes Heart: rrr Lungs: ctab vesicular Assessment and Plan Assessment Anesthesia Assessment: Anesthesia Plan Discussed and Chart Reviewed Final Anesthetic Review NPO: Yes ASA Class: I Final Preanesthetic Review: No Changes in Pt Med Stat, Meds/Allgs Chart Reviewed, Consent Obtained/Reviewed and Anes Risks/Benef Reviewed Patient Risk: Low Procedure Risk: Low Anesthetic Plan Anesthetic Plan: GA Disposition: Standard PACU
[2025-07-17 11:14] VITALS: BMI 25.2
[2025-07-17 11:25] VITALS: BP 144/104; PULSE 101; RESP 16; TEMP 37; O2SAT 97
[2025-07-17] MEDS: Lactated Ringers 1,000 ML 100 ML IVCONT (11:27)
--- NOTE | 2025-07-17 12:01 | MHC.SHP ---
Pre-Procedural Eval Section A - 24 Hr Update-Section A only Date of Service: 07/17/25 The patient is an INPATIENT: No Changes since office visit: Yes Patient answered all questions; No Cold of Flu in the past 2 weeks, No New Medical Problems and No Changes in Medication The patient has been examined within 24 hours of the surgical procedure. The History & Physical has been completed within 30 days and I have reviewed it.: Yes Section B - Complete if H&P > 30 days Chief Complaint: Bilateral inguinal hernia, without obstruction Allergies: Allergies Allergy/AdvReac Type Severity Reaction Status Date / Time No Known Allergies Allergy Verified 07/08/25 09:29 Plan Diagnosis/Plan: Unchanged I have reviewed the history and physical and performed a pertinent physical examination on my patient. No changes have occurred unless specified. Time Spent With Patient Time: Total time managing care of this patient today ____ minutes.
--- NOTE | 2025-07-17 13:42 | W.PM.OPN ---
Operative Note Operative Note Date of Service: 07/17/25 Narrative: Preoperative diagnosis: Bilateral inguinal hernias, reducible Postoperative diagnosis: Same Procedure: Repair of bilateral reducible inguinal hernias with mesh Surgeon: Rm Cruz MD Head Of Loss Prevention: Beatriz Frank PA-C Anesthesia: General endotracheal Indications for procedure: 44-year-old male patient presenting with complaints of bilateral inguinal hernias which are occasionally uncomfortable. The hernias are noted to increase in size with lifting but reduces in the supine position. On examination he does have reducible bilateral inguinal hernias. Operative findings: Bilateral direct inguinal hernias Specimen: Hernia lipoma bilaterally Estimated blood loss: 5 mL Complications: None Procedure details: Patient was brought to the OR and placed in a supine position. After administering general anesthesia the patient's abdomen was prepped with ChloraPrep and draped in a sterile fashion. A surgical time-out was called the consent confirmed. Patient received preoperative antibiotics and Venodyne boots were in place. Local anesthesia consisting of 0.5% Sensorcaine was infiltrated over the bilateral inguinal ligaments. Beginning in the left side and incision was made over the inguinal ligament and carried out through subcutaneous tissue, past Mando's fashion up to the external oblique aponeurosis. Local anesthesia was infiltrated below the external oblique aponeurosis and this was then incised with a scalpel and widened with the Metzenbaum scissors. The spermatic cord was then dissected free from the inguinal canal and retracted using a [facility] drain. A direct inguinal hernia was immediately noted. Fibers of the cremaster muscle were then and a small lipoma of the cord dissected down to the internal ring. This was then ligated with a 3-0 Polysorb suture and excised. This was sent as a specimen. Attention was then directed to the floor of the inguinal canal. Fibers of the internal oblique and transversalis aponeurosis were then incised with the electrocautery and a preperitoneal space dissected in the direct space. This was then widened with a open Ray-Bruce sponge. A large PHS mesh was then obtained and the circular underlay deployed within the preperitoneal space. The overlay was then secured to the pubic tubercle, conjoined tendon and shelving edge of the inguinal ligament using a 0 Polysorb suture. A slit was made in the mesh in the mesh wrapped around the spermatic cord at the internal ring. This was secured at the shelving edge with a 0 Polysorb suture. The wrap was tight enough to allow only the passage of the tip of the index finger to pass. The remainder of the mesh was placed laterally below the external oblique aponeurosis. Wounds were then irrigated with saline solution and suctioned dry. External oblique aponeurosis was then closed using a running 2-0 Polysorb suture. Attention was then directed to the right groin where again an incision was made over the right inguinal ligament. This was carried out through subcutaneous tissue, past Mando's fascia and up to the external oblique aponeurosis. Additional local was infiltrated below the external oblique aponeurosis. This was then incised with a scalpel and widened with the Metzenbaum scissors. The spermatic cord was then dissected free from the surrounding inguinal canal and retracted using a [facility] drain. Once again a direct hernia was identified. Fibers of the cremaster muscle were and a small lipoma noted within the spermatic cord. This was dissected down to the internal ring ligated and divided. Attention was then directed to the floor of the inguinal canal which were again was grasped with Allis clamps in the internal oblique and transversalis aponeurosis incised with the electrocautery, entering the preperitoneal space. This was then widened using an open Ray-Bruce sponge. A large PHS mesh was then obtained in the circular underlay deployed within the preperitoneal space. The overlay was then secured to the pubic tubercle, conjoined tendon, and shelving edge of the inguinal ligament using the 0 Polysorb suture. A slit was made in the mesh in the mesh wrapped around the spermatic cord at the internal ring. This was then secured to the shelving edge of the inguinal ligament using a 0 Polysorb suture. This was wrapped around tight enough to allow the tip of the index finger to pass. Wounds were then irrigated with saline solution and suctioned dry. External oblique aponeurosis was then closed using a running 2-0 Polysorb suture. Approximately 6 mL of Zenrelef was instilled below the external oblique aponeurosis on both incisions. Mando's fascia and dermis were then reapproximated using interrupted 3-0 Polysorb sutures. Skin was closed using a running subcuticular 4-0 Polysorb suture. Steri-Strips, 4 x 4 gauze and Tegaderm were then applied. The patient tolerated the procedure well. Sponge, instrument, and needle counts reported as correct. The patient was transferred to PACU in stable condition.
[2025-07-17 13:45] VITALS: BP 152/94; PULSE 95; RESP 10; TEMP 37.1; O2SAT 93
[2025-07-17 13:50] VITALS: BP 145/94; PULSE 101; RESP 14; O2SAT 95
[2025-07-17 13:55] VITALS: BP 150/98; PULSE 101; RESP 14; O2SAT 95
[2025-07-17 14:00] VITALS: BP 151/100; PULSE 102; RESP 14; TEMP 37.1; O2SAT 94
== END 2025-07-17 14:56 | disposition home or self-care (01) ==
PROVIDERS: Visit Provider Surgery
PROC: (CPT 49505; principal; 2025-07-17 13:10)
DX: K40.20 Bilateral inguinal hernia, without obstruction or gangrene, not specified as recurrent (principal); D17.6 Benign lipomatous neoplasm of spermatic cord
CPT/HCPCS: 49505; 88304; C1781; J0131; J0668; J0690; J1100; J1171; J1885; J2003; J2250; J2405; J2704; J3010

== ENCOUNTER → 2025-07-17 10:48 | Outpatient (BNV) | payer BC, SELFPAY | PROVIDERS: Visit Provider Surgery | DX: K40.20 Bilateral inguinal hernia, without obstruction or gangrene, not specified as recurrent (principal) | CPT/HCPCS: 49505 ==

== ENCOUNTER 2025-07-29 09:35 | Outpatient (AMB) | payer BC, SELFPAY ==
--- NOTE | 2025-07-29 09:38 | MHC.OFFVIS ---
Vital Signs 07/29/25 09:45 Height 5 ft 10 in Weight 174 lb BMI 25.0 BP 148/78 H Blood Pressure Location Lt brachial Position Sitting Pulse 120 H Intake Visit Reasons: S/P Bilat. reducible inguinal hernias w/mesh Intake Note: Patient is seen in office for post op assessment post repair of bilateral reducible inguinal hernias with mesh. 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 reducible inguinal hernias w/mesh: Details: doing well, having some swelling but states he felt good, so tried to return to work (without heavy lifting) but got some swelling and pain so has decided to stay home from work now. He describes his pain as tolerable, swollen. He is doing well otherwise. Tolerating diet, bowel function at baseline. He has no other concerns. He has left the dressings in place, denies bleeding through dressings. 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 some resolving ecchymosis. Dressings were in place. No fluctuance or fluid collection. Neuro General: patient oriented x3 Assessment & Plan Assessment & Plan (1) Bilateral inguinal hernia: Code(s): K40.20 - Bilateral inguinal hernia, without obstruction or gangrene, not specified as recurrent Category: Medical Qualifiers: Obstruction and gangrene presence: without obstruction or gangrene Recurrence: non-recurrent Qualified Code(s): K40.20 - Bilateral inguinal hernia, without obstruction or gangrene, not specified as recurrent Plan 44-year-old male s/p bilateral inguinal hernia repair with Dr. Cruz on 07/17/2025 returning for routine follow-up. Overall the well, CT went back to work last week been having more pain swelling at the incision sites so he subsequently took more time work. He denies any heavy lifting. He does have some discomfort at the incision sites but describes the pain is tolerable. Appetite and bowel function at baseline. Denies fevers at home. On exam there is some moderate swelling around both incision sites, there is no compromise of skin. His the clean and dry. I removed dressings in the office. There is some surrounding resolving ecchymosis. Was unable to appreciate fluctuance or fluid collection at the incision sites. I did recommend that he use warm compress to 3 times a day to help improve swelling. He plans to stay at work for another week. He is able to do light duty and feels comfortable starting this next week. I reinforced the importance of activity restrictions. We will continue with no heavy lifting greater than 15-20 lb for a total of 6 weeks postoperatively. He is agreeable to this plan. Will follow-up in 3 weeks or sooner as needed Coding Level of Care Code Global (29919) Diagnoses Non-recurrent bilateral inguinal hernia without obstruction or gangrene K40.20 Obstruction and gangrene presence: without obstruction or gangrene Recurrence: non-recurrent
[2025-07-29 09:45] VITALS: BP 148/78; PULSE 120; BMI 25.0
== END 2025-07-29 09:56 | disposition home or self-care (01) ==
LOC: HO.HGS 09:35
PROVIDERS: PCP Nurse Practitioner Family
DX: K40.20 Bilateral inguinal hernia, without obstruction or gangrene, not specified as recurrent (principal)
CPT/HCPCS: 99024